=== PATIENT | male | born 1940 | race Caucasian/White ===

== ENCOUNTER 2020-10-21 04:38 | Day surgery (SDC) | payer OTHER, MEDICARE ==
[2020-10-20 14:28] VITALS: BMI 28.2
[~2020-10-21 04:38] MED LIST: BUPIVACAINE HCL/PF 0.75% 10 ML VIAL NR ONE; IOHEXOL 180 MG/1 ML ML IJ ONE; LIDOCAINE 1% P/F 10 MG/ML VIAL INF ONE
[2020-10-21] MEDS ORDERED: IOHEXOL 180 MG/1 ML ML IJ ONE (09:43)
[2020-10-21] MEDS ORDERED: BUPIVACAINE HCL/PF 0.75% 10 ML VIAL NR ONE (09:43)
[2020-10-21] MEDS ORDERED: LIDOCAINE 1% P/F 10 MG/ML VIAL INF ONE (09:43)
[2020-10-21 10:05] VITALS: BP 147/67; PULSE 57; TEMP 97.3
== END 2020-10-21 10:21 | disposition home or self-care (01) ==
LOC: JASU-SURG 04:38
PROVIDERS: ATTEND Pain Medicine Pain Medicine
PROC: BR16YZZ Fluoroscopy of Lumbar Facet Joint(s) using Other Contrast (ICD-10-PCS; 2020-10-21)
PROC: 3E0T3BZ Introduction of Anesthetic Agent into Peripheral Nerves and Plexi, Percutaneous Approach (ICD-10-PCS; principal; 2020-10-21 10:00)
DX: M47.816 Spondylosis without myelopathy or radiculopathy, lumbar region (principal)
CPT/HCPCS: 76000-TC-FY

== ENCOUNTER → 2020-11-11 | Day surgery (SDC) | payer OTHER, MEDICARE ==
[2020-11-10 10:30] VITALS: BMI 28.2
[~2020-11-11] MED LIST changes: +BUPIVACAINE HCL/PF 0.5% (5MG/ML) 10 ML VIAL ONE; +BUPIVACAINE HCL/PF 0.75% 10 ML VIAL ONE; -LIDOCAINE 1% P/F 10 MG/ML VIAL INF ONE; +LIDOCAINE HCL 1% PRESERVATIVE FREE - 30ML VIAL IJ ONE
[2020-11-11 11:16] VITALS: BP 132/70; PULSE 56; TEMP 97.2
== END | disposition home or self-care (01) ==
LOC: JASU-SURG 04:25
PROVIDERS: ATTEND Pain Medicine Pain Medicine
PROC: BR16YZZ Fluoroscopy of Lumbar Facet Joint(s) using Other Contrast (ICD-10-PCS; 2020-11-11)
PROC: 3E0T3BZ Introduction of Anesthetic Agent into Peripheral Nerves and Plexi, Percutaneous Approach (ICD-10-PCS; principal; 2020-11-11 09:30)
DX: M47.816 Spondylosis without myelopathy or radiculopathy, lumbar region (principal)
CPT/HCPCS: 76000-TC-FY

== ENCOUNTER 2020-12-02 05:03 | Day surgery (SDC) | payer OTHER, MEDICARE ==
[2020-11-30 12:07] VITALS: BMI 28.2
[2020-12-02] MEDS ORDERED: LIDOCAINE HCL/PF 1% SDV 5ML VIAL ONE (07:19)
[2020-12-02] MEDS ORDERED: DEXAMETHASONE SOD PHOSPHATE 10 MG/1 ML VIAL ONE (07:19)
[2020-12-02] MEDS ORDERED: BUPIVACAINE HCL/PF 0.5% (5MG/ML) 10 ML VIAL ONE (07:19)
[2020-12-02] MEDS ORDERED: LIDOCAINE HCL/PF 2% SDV 5ML VIAL ONE (07:24)
[2020-12-02] MEDS ORDERED: LIDOCAINE HCL 1% PRESERVATIVE FREE - 30ML VIAL IJ ONE (12:30)
[2020-12-02] MEDS ORDERED: LIDOCAINE HCL/PF 2% SDV 5ML VIAL INF ONE (12:34)
[2020-12-02] MEDS ORDERED: IOHEXOL 180 MG/1 ML ML IJ ONE (12:34)
[2020-12-02] MEDS ORDERED: DEXAMETHASONE SOD PHOSPHATE 10 MG/1 ML VIAL IVPUSH ONE (12:35)
[2020-12-02] MEDS ORDERED: BUPIVACAINE HCL/PF 0.75% 10 ML VIAL NR ONE ×2 (12:36)
[2020-12-02 16:04] VITALS: BP 178/62; PULSE 62; TEMP 97.2
== END 2020-12-02 13:06 | disposition home or self-care (01) ==
LOC: JASU-SURG 05:03
PROVIDERS: ATTEND Pain Medicine Pain Medicine
PROC: BR16YZZ Fluoroscopy of Lumbar Facet Joint(s) using Other Contrast (ICD-10-PCS; principal; 2020-12-02 11:15)
PROC: 3E0T3TZ Introduction of Destructive Agent into Peripheral Nerves and Plexi, Percutaneous Approach (ICD-10-PCS; 2020-12-02 11:15)
DX: M47.816 Spondylosis without myelopathy or radiculopathy, lumbar region (principal)
CPT/HCPCS: 76000-TC-FY; J1100

== ENCOUNTER 2020-12-30 04:19 | Day surgery (SDC) | payer OTHER, MEDICARE ==
[2020-12-28 17:11] VITALS: BMI 28.2
[2020-12-30] MEDS ORDERED: LIDOCAINE HCL/PF 1% SDV 5ML VIAL ONE (07:17)
[2020-12-30] MEDS ORDERED: TRIAMCINOLONE ACET 40MG/1ML VIAL ONE (07:18)
[2020-12-30] MEDS ORDERED: BUPIVACAINE HCL/PF 0.5% (5MG/ML) 10 ML VIAL ONE (07:19)
[2020-12-30] MEDS ORDERED: IOHEXOL 180 MG/1 ML ML IT ONE (09:47)
[2020-12-30] MEDS ORDERED: LIDOCAINE 1% P/F 10 MG/ML VIAL INF ONE (09:47)
[2020-12-30] MEDS ORDERED: BUPIVACAINE HCL/PF 0.5% (5 MG/ML) 30 ML VIAL IJ ONE (09:47)
[2020-12-30] MEDS ORDERED: TRIAMCINOLONE ACETONIDE 40 MG/ML 10 ML VIAL IJ ONE (09:47)
[2020-12-30 10:54] VITALS: BP 155/51; PULSE 60; TEMP 98.4
== END 2020-12-30 10:25 | disposition home or self-care (01) ==
LOC: JASU-SURG 04:19
PROVIDERS: ATTEND Pain Medicine Pain Medicine
PROC: 3E0U3BZ Introduction of Anesthetic Agent into Joints, Percutaneous Approach (ICD-10-PCS; 2020-12-30)
PROC: 3E0U33Z Introduction of Anti-inflammatory into Joints, Percutaneous Approach (ICD-10-PCS; principal; 2020-12-30 09:15)
DX: M53.3 Sacrococcygeal disorders, not elsewhere classified (principal)

== ENCOUNTER 2021-09-19 17:10 | Emergency (ER) | payer OTHER, MEDICARE ==
[2021-09-19 17:28] VITALS: BP 146/56; PULSE 66; TEMP 98.4; BMI 28.2
[2021-09-19] MEDS ORDERED: ALBUTEROL SO4 2.5/IPRATROPIUM 0.5 INH SOL 3 ML VIAL.NEB. NEB ONE ×2 (19:30→20:56)
[2021-09-19 21:50] LABS: INFLU A MOLECULAR Negative (Negative); INFLU B MOLECULAR Negative (Negative)
== END 2021-09-19 21:00 | disposition home or self-care (01) ==
LOC: JER 17:10
PROC: 3E0F7GC Introduction of Other Therapeutic Substance into Respiratory Tract, Via Natural or Artificial Opening (ICD-10-PCS; principal; 2021-09-19)
DX: U07.1 COVID-19 (principal)
CPT/HCPCS: 71046-TC-FY; 87502; 87807; 94640; 99284-25; C9803-CS; U0003; U0005

== ENCOUNTER 2022-01-16 04:26 | Day surgery (SDC) | payer OTHER, MEDICARE ==
[2022-01-11 12:01] VITALS: BMI 28.2
[2022-01-16] MEDS ORDERED: LIDOCAINE HCL/PF 1% SDV 5ML VIAL ONE (07:15)
[2022-01-16] MEDS ORDERED: BUPIVACAINE HCL/PF 0.5% (5MG/ML) 10 ML VIAL ONE (07:15)
[2022-01-16] MEDS ORDERED: BUPIVACAINE HCL/PF 0.5% (5 MG/ML) 30 ML VIAL IJ ONE (12:32)
[2022-01-16 15:25] VITALS: BP 135/74; PULSE 75; RESP 20; TEMP 97.2
== END 2022-01-16 13:11 | disposition home or self-care (01) ==
LOC: JASU-SURG 04:26
PROVIDERS: ATTEND Pain Medicine Pain Medicine
PROC: BR14YZZ Fluoroscopy of Cervical Facet Joint(s) using Other Contrast (ICD-10-PCS; 2022-01-16)
PROC: 3E0T3BZ Introduction of Anesthetic Agent into Peripheral Nerves and Plexi, Percutaneous Approach (ICD-10-PCS; principal; 2022-01-16 12:00)
DX: M47.812 Spondylosis without myelopathy or radiculopathy, cervical region (principal)
CPT/HCPCS: 76000-TC-FY

== ENCOUNTER → 2022-02-09 | Day surgery (SDC) | payer OTHER, MEDICARE ==
[2022-02-08 09:51] VITALS: BMI 28.2
[~2022-02-09] MED LIST changes: +BUPIVACAINE HCL/PF 0.5% (5MG/ML) 10 ML VIAL NR ONE; -BUPIVACAINE HCL/PF 0.75% 10 ML VIAL NR ONE; -BUPIVACAINE HCL/PF 0.75% 10 ML VIAL ONE; +LIDOCAINE 1% P/F 10 MG/ML VIAL INF ONE; -LIDOCAINE HCL 1% PRESERVATIVE FREE - 30ML VIAL IJ ONE; +LIDOCAINE HCL/PF 1% SDV 5ML VIAL ONE
== END | disposition home or self-care (01) ==
LOC: JASU-SURG 05:11
PROVIDERS: ATTEND Pain Medicine Pain Medicine
DX: Z53.9 Procedure and treatment not carried out, unspecified reason (principal)

== ENCOUNTER 2022-04-03 04:27 | Day surgery (SDC) | payer OTHER, MEDICARE ==
[2022-03-30 12:39] VITALS: BMI 27.4
[2022-04-03 11:09] VITALS: RESP 16
[2022-04-03] MEDS ORDERED: LIDOCAINE HCL 1% PRESERVATIVE FREE - 30ML VIAL IJ ONE (11:15)
[2022-04-03] MEDS ORDERED: BUPIVACAINE HCL/PF 0.5% (5MG/ML) 10 ML VIAL IJ ONE ×2 (11:16→11:21)
[2022-04-03 12:03] VITALS: BP 147/77; PULSE 69; TEMP 97.5
== END 2022-04-03 12:40 | disposition home or self-care (01) ==
LOC: JASU-SURG 04:27
PROVIDERS: ATTEND Pain Medicine Pain Medicine
PROC: BR14YZZ Fluoroscopy of Cervical Facet Joint(s) using Other Contrast (ICD-10-PCS; 2022-04-03)
PROC: 3E0T3BZ Introduction of Anesthetic Agent into Peripheral Nerves and Plexi, Percutaneous Approach (ICD-10-PCS; principal; 2022-04-03 11:21)
DX: M47.812 Spondylosis without myelopathy or radiculopathy, cervical region (principal); E11.9 Type 2 diabetes mellitus without complications; Z79.84 Long term (current) use of oral hypoglycemic drugs
CPT/HCPCS: 76000-TC-FY

== ENCOUNTER 2022-12-18 12:17 | Inpatient (IN) | payer OTHER, MEDICARE ==
[2022-12-18] MEDS ORDERED: CLINDAMYCIN 600MG PREMIX IVPB 600 MG/50 ML BAG IVPB ONE ×2 (13:34→13:44)
[2022-12-18 13:52] LABS: BASO % 0.5 % (0-2.0); EOS % 2.1 % (0-4.5); HEMATOCRIT 39.1 % (35.4-49); HEMOGLOBIN 13.3 GM/dL (11.7-16.9); LYMPH % 11.1 % (8-40); MCH 27.7 pg (25.7-33.7); MEAN CELL VOLUME 81.4 fl (80-96); MEAN PLT VOLUME 8.9 fl (7.5-11.1); MONO % 7.6 % (3.8-10.2); NEUT % 78.7 % (42.8-82.8); PLATELET COUNT 75 10^3/uL (134-434); RDW 17.4 % (11.9-15.9); WHITE BLOOD COUNT 5.5 K/mm3 (4.0-10.0)
[2022-12-18 13:59] LABS: INR 1.16 (0.83-1.09); PROTHROMBIN TIME (PATIENT) 13.4 SEC (9.7-13.0)
[2022-12-18 14:13] LABS: POTASSIUM 5.2 mmol/L (3.5-5.1)
[2022-12-18 14:15] LABS: CALCIUM 8.1 mg/dL (8.5-10.1)
[2022-12-18 14:16] LABS: ALBUMIN 3.5 g/dl (3.4-5.0)
[2022-12-18 14:19] LABS: CREATININE 1.6 mg/dL (0.55-1.3)
[2022-12-18 14:20] LABS: BILIRUBIN,TOTAL 0.6 mg/dL (0.2-1); TOT PROT 6.7 g/dl (6.4-8.2)
[2022-12-18 14:24] LABS: N-TERMINAL BNP 126.8 pg/ml (5-450)
[2022-12-18 14:29] LABS: BLOOD UREA NITROGEN 36.9 mg/dL (7-18)
[2022-12-18] MEDS ORDERED: SODIUM CHLORIDE 0.9% 500 ML INFUS.BAG IV ONE (14:41)
[2022-12-18] MEDS ORDERED: LIDOCAINE 5% TOPICAL PATCH TP ONE (18:19)
[2022-12-18] MEDS ORDERED: LACTULOSE 20 GM/30 ML UDC (FOR ORAL USE ONLY) PO PRN (18:21)
[2022-12-18 20:29] VITALS: BMI 27.2
[2022-12-18] MEDS: CEFAZOLIN SODIUM 2 GM in DEXTROSE 5%-WATER 100 ML IVPB SCH (21:48)
[2022-12-18] MEDS: INSULIN SLIDING SCALE (NOVOLOG) 1 VIAL SQ SCH (21:49)
[2022-12-18] MEDS: HEPARIN NA (PORCINE) 5,000 UNITS/ML 1ML VIAL SQ SCH (21:49)
[2022-12-18] MEDS ORDERED: LIDOCAINE PATCH REMOVAL MC SCH (22:00)
[2022-12-19] MEDS: ACETAMINOPHEN 1000 MG/100 ML BAG IVPB PRN ×2 (01:43→12:06)
[2022-12-19] MEDS: CEFAZOLIN SODIUM 2 GM in DEXTROSE 5%-WATER 100 ML IVPB SCH ×2 (04:00→11:17)
[2022-12-19] MEDS: INSULIN SLIDING SCALE (NOVOLOG) 1 VIAL SQ SCH ×3 (06:03→17:17)
[2022-12-19 06:40] VITALS: RESP 18
[2022-12-19] MEDS: HEPARIN NA (PORCINE) 5,000 UNITS/ML 1ML VIAL SQ SCH (11:13)
[2022-12-19 11:16] LABS: BASO % 0.5 % (0-2.0); EOS % 2.5 % (0-4.5); HEMATOCRIT 39.4 % (35.4-49); HEMOGLOBIN 13.2 GM/dL (11.7-16.9); LYMPH % 12.4 % (8-40); MCH 27.2 pg (25.7-33.7); MCHC 33.4 g/dl (32.0-35.9); MEAN CELL VOLUME 81.5 fl (80-96); MEAN PLT VOLUME 9.1 fl (7.5-11.1); MONO % 8.2 % (3.8-10.2); NEUT % 76.4 % (42.8-82.8); PLATELET COUNT 80 10^3/uL (134-434); RBC 4.83 M/mm3 (4.00-5.60); WHITE BLOOD COUNT 4.2 K/mm3 (4.0-10.0)
[2022-12-19 11:43] LABS: POTASSIUM 4.5 mmol/L (3.5-5.1)
[2022-12-19 11:59] LABS: ERYTHROCYTE SEDIMENTATION RATE 20 mm/hr (0-20)
[2022-12-19 12:06] LABS: BLOOD UREA NITROGEN 27.3 mg/dL (7-18)
[2022-12-19 12:07] LABS: ALBUMIN 3.3 g/dl (3.4-5.0); CALCIUM 8.3 mg/dL (8.5-10.1); MAGNESIUM 2.4 mg/dL (1.8-2.4)
[2022-12-19 12:09] LABS: PHOSPHOROUS 3.2 mg/dL (2.5-4.9)
[2022-12-19 12:10] LABS: CREATININE 1.3 mg/dL (0.55-1.3)
[2022-12-19 12:11] LABS: BILIRUBIN,TOTAL 0.7 mg/dL (0.2-1); TOT PROT 6.3 g/dl (6.4-8.2)
[2022-12-19 14:22] VITALS: BP 138/53; PULSE 64; TEMP 98.4
== END 2022-12-19 16:36 | disposition home or self-care (01) | DRG 603 ==
LOC: JER 12:17 → JERBED 15:32 → J5S 20:27
PROVIDERS: ADMIT Internal Medicine
DX: L03.115 Cellulitis of right lower limb (principal); M54.9 Dorsalgia, unspecified; D69.6 Thrombocytopenia, unspecified; E78.5 Hyperlipidemia, unspecified; I25.10 Atherosclerotic heart disease of native coronary artery without angina pectoris; N40.0 Benign prostatic hyperplasia without lower urinary tract symptoms; E11.9 Type 2 diabetes mellitus without complications; K59.00 Constipation, unspecified; F41.0 Panic disorder [episodic paroxysmal anxiety]; G89.29 Other chronic pain; M71.22 Synovial cyst of popliteal space [Baker], left knee; Z95.0 Presence of cardiac pacemaker
CPT/HCPCS: 36415; 80053; 82962; 83036; 83735; 83880; 84100; 84484; 85025; 85610; 85651; 85730; 93005; 93010; 93970-TC; 97116-GP; 97161-GP; 99285-25

== ENCOUNTER 2023-01-01 10:30 | Day surgery (SDC) | payer OTHER, MEDICARE ==
[2022-12-28 16:29] VITALS: BMI 28.2
[2023-01-01] MEDS ORDERED: BUPIVACAINE HCL/PF 0.75% 10 ML VIAL NR ONE ×2 (12:35→12:48)
[2023-01-01] MEDS ORDERED: LIDOCAINE HCL 1%, 10 MG/ML (20ML VIAL) INF ONE ×2 (12:36→12:48)
[2023-01-01] MEDS ORDERED: DEXAMETHASONE SOD PHOSPHATE 10 MG/1 ML VIAL IM ONE (12:37)
[2023-01-01] MEDS ORDERED: LIDOCAINE HCL 2% (50ML VIAL) INF ONE (12:37)
[2023-01-01 13:14] VITALS: RESP 18
[2023-01-01 13:46] VITALS: BP 140/82; PULSE 68; TEMP 97.6
[2023-01-01] MEDS ORDERED: ACETAMINOPHEN 500 MG TABLET (FP) PO PRN (15:59)
== END 2023-01-01 13:51 | disposition home or self-care (01) ==
LOC: JASU-SURG 10:30
PROVIDERS: ATTEND Pain Medicine Pain Medicine
PROC: 3E0T33Z Introduction of Anti-inflammatory into Peripheral Nerves and Plexi, Percutaneous Approach (ICD-10-PCS; 2023-01-01)
PROC: 3E0T3BZ Introduction of Anesthetic Agent into Peripheral Nerves and Plexi, Percutaneous Approach (ICD-10-PCS; principal; 2023-01-01 12:30)
DX: M47.816 Spondylosis without myelopathy or radiculopathy, lumbar region (principal)
CPT/HCPCS: 76000-TC-FY; J1100

== ENCOUNTER 2023-01-23 07:36 | Emergency (ER) | payer OTHER, MEDICARE ==
[2023-01-23 07:43] VITALS: BP 152/85; PULSE 80; RESP 18; TEMP 98.1; BMI 29.0
[2023-01-23 08:41] LABS: BASO % 0.4 % (0-2.0); HEMOGLOBIN 13.3 GM/dL (11.7-16.9); LYMPH % 10.3 % (8-40); MCH 26.7 pg (25.7-33.7); MCHC 33.3 g/dl (32.0-35.9); MEAN CELL VOLUME 80.3 fl (80-96); MEAN PLT VOLUME 8.8 fl (7.5-11.1); MONO % 8.2 % (3.8-10.2); NEUT % 80.1 % (42.8-82.8); PLATELET COUNT 112 10^3/uL (134-434); RBC 4.98 M/mm3 (4.00-5.60); RDW 16.6 % (11.9-15.9); WHITE BLOOD COUNT 6.4 K/mm3 (4.0-10.0)
[2023-01-23 09:01] LABS: POTASSIUM 4.9 mmol/L (3.5-5.1)
[2023-01-23 09:02] LABS: CALCIUM 8.8 mg/dL (8.5-10.1)
[2023-01-23 09:03] LABS: ALBUMIN 3.5 g/dl (3.4-5.0); BLOOD UREA NITROGEN 27.8 mg/dL (7-18)
[2023-01-23 09:06] LABS: CREATININE 1.6 mg/dL (0.55-1.3)
[2023-01-23 09:07] LABS: BILIRUBIN,TOTAL 0.9 mg/dL (0.2-1); TOT PROT 6.8 g/dl (6.4-8.2)
[2023-01-23 09:11] LABS: N-TERMINAL BNP 123.6 pg/ml (5-450)
[2023-01-23] MEDS ORDERED: ACETAMINOPHEN 325 MG TABLET (FP) PO ONE (12:10)
[2023-01-23] MEDS ORDERED: ACETAMINOPHEN 325 MG TABLET (FP) ONE (12:14)
== END 2023-01-23 12:17 | disposition home or self-care (01) ==
LOC: JER 07:36
DX: R06.02 Shortness of breath (principal); R05.9 Cough, unspecified; R09.81 Nasal congestion; B34.9 Viral infection, unspecified; Z20.822 Contact with and (suspected) exposure to COVID-19
CPT/HCPCS: 0241U-QW; 36415; 71046-TC-FY; 80053; 83880; 84484; 85025; 93005; 93010; 99285-25

== ENCOUNTER 2023-02-05 11:57 | Emergency (ER) | payer OTHER, MEDICARE ==
[2023-02-05 12:01] VITALS: BP 162/66; PULSE 72; RESP 16; TEMP 98.2; BMI 28.2
[2023-02-05 14:39] LABS: BASO % 0.3 % (0-2.0); EOS % 0.6 % (0-4.5); HEMATOCRIT 36.3 % (35.4-49); MCH 26.9 pg (25.7-33.7); MCHC 33.2 g/dl (32.0-35.9); MEAN CELL VOLUME 80.9 fl (80-96); MEAN PLT VOLUME 8.5 fl (7.5-11.1); MONO % 8.6 % (3.8-10.2); NEUT % 82.5 % (42.8-82.8); PLATELET COUNT 101 10^3/uL (134-434); RBC 4.49 M/mm3 (4.00-5.60); RDW 16.7 % (11.9-15.9); WHITE BLOOD COUNT 6.7 K/mm3 (4.0-10.0)
[2023-02-05 14:40] LABS: URINE APPEARANCE CLEAR; URINE BILIRUBIN NEGATIVE (NEGATIVE); URINE COLOR YELLOW; URINE GLUCOSE (UA) 3+ (NEGATIVE); URINE KETONE NEGATIVE (NEGATIVE); URINE LEUK ESTERASE NEGATIVE (NEGATIVE); URINE NITRITE NEGATIVE (NEGATIVE); URINE PROTEIN TRACE (NEGATIVE); URINE UROBILINOGEN 0.2 mg/dL (0.2-1.0)
[2023-02-05 14:45] LABS: INR 1.17 (0.83-1.09); PROTHROMBIN TIME (PATIENT) 13.5 SEC (9.7-13.0)
[2023-02-05 14:48] LABS: ACTIVATED PTT 27.7 SECONDS (25.2-36.5)
[2023-02-05 15:04] LABS: POTASSIUM 5.9 mmol/L (3.5-5.1)
[2023-02-05 15:07] LABS: BLOOD UREA NITROGEN 29.1 mg/dL (7-18); CALCIUM 8.2 mg/dL (8.5-10.1)
[2023-02-05 15:09] LABS: CREATININE 1.4 mg/dL (0.55-1.3)
[2023-02-05 15:11] LABS: BILIRUBIN,TOTAL 0.5 mg/dL (0.2-1); TOT PROT 6.4 g/dl (6.4-8.2)
[2023-02-05] MEDS ORDERED: SODIUM POLYSTYRENE SULFONATE 15 GM/60 ML BOTTLE PO ONE (16:14)
[2023-02-05] MEDS ORDERED: SODIUM POLYSTYRENE SULFONATE 15 GM/60 ML BOTTLE ONE (16:43)
== END 2023-02-05 16:49 | disposition home or self-care (01) ==
LOC: JER 11:57
DX: R10.11 Right upper quadrant pain (principal); R05.9 Cough, unspecified; S39.011A Strain of muscle, fascia and tendon of abdomen, initial encounter; E87.5 Hyperkalemia; J06.9 Acute upper respiratory infection, unspecified; X58.XXXA Exposure to other specified factors, initial encounter
CPT/HCPCS: 36415; 76705-TC; 80053; 81003; 83690; 85025; 85610; 85730; 87086; 99284-25

== ENCOUNTER 2023-04-30 04:18 | Day surgery (SDC) | payer OTHER, MEDICARE ==
[2023-04-29 11:56] VITALS: BMI 28.2
[2023-04-30] MEDS ORDERED: LIDOCAINE HCL/PF 1% SDV 5ML VIAL ONE (07:19)
[2023-04-30] MEDS ORDERED: BUPIVACAINE HCL/PF 0.5% (5MG/ML) 10 ML VIAL ONE (07:19)
[2023-04-30 09:55] VITALS: RESP 20
[2023-04-30] MEDS ORDERED: BUPIVACAINE HCL/PF 0.5% (5MG/ML) 10 ML VIAL IJ ONE (10:59)
[2023-04-30 13:54] VITALS: BP 138/64; PULSE 65; TEMP 97.9
[2023-04-30] MEDS ORDERED: ACETAMINOPHEN 500 MG TABLET (FP) PO PRN (22:26)
== END 2023-04-30 11:40 | disposition home or self-care (01) ==
LOC: JASU-SURG 04:18
PROVIDERS: ATTEND Pain Medicine Pain Medicine
PROC: 3E0T33Z Introduction of Anti-inflammatory into Peripheral Nerves and Plexi, Percutaneous Approach (ICD-10-PCS; 2023-04-30)
PROC: 3E0T3BZ Introduction of Anesthetic Agent into Peripheral Nerves and Plexi, Percutaneous Approach (ICD-10-PCS; principal; 2023-04-30 09:30)
DX: M47.812 Spondylosis without myelopathy or radiculopathy, cervical region (principal)
CPT/HCPCS: 76000-TC-FY

== ENCOUNTER 2023-09-18 22:15 | Inpatient (IN) | payer OTHER, MEDICARE ==
[2023-09-18 22:23] VITALS: BMI 28.2
[2023-09-18 23:39] LABS: BASO % 0.3 % (0-2.0); EOS % 2.9 % (0-4.5); HEMATOCRIT 42.9 % (35.4-49); HEMOGLOBIN 14.2 GM/dL (11.7-16.9); LYMPH % 10.5 % (8-40); MCH 26.8 pg (25.7-33.7); MCHC 33.2 g/dl (32.0-35.9); MEAN CELL VOLUME 80.7 fl (80-96); MEAN PLT VOLUME 8.6 fl (7.5-11.1); MONO % 12.6 % (3.8-10.2); NEUT % 73.7 % (42.8-82.8); PLATELET COUNT 78 10^3/uL (134-434); RBC 5.31 M/mm3 (4.00-5.60); RDW 18.1 % (11.9-15.9); WHITE BLOOD COUNT 6.4 K/mm3 (4.0-10.0)
[2023-09-18 23:41] LABS: POTASSIUM 4.2 mmol/L (3.5-5.1)
[2023-09-18 23:43] LABS: ALBUMIN 3.9 g/dl (3.4-5.0); CALCIUM 8.9 mg/dL (8.5-10.1); MAGNESIUM 2.6 mg/dL (1.8-2.4)
[2023-09-18 23:44] LABS: BLOOD UREA NITROGEN 19.3 mg/dL (7-18)
[2023-09-18 23:47] LABS: CREATININE 1.5 mg/dL (0.55-1.3)
[2023-09-18 23:48] LABS: BILIRUBIN,TOTAL 0.8 mg/dL (0.2-1); TOT PROT 7.4 g/dl (6.4-8.2)
[2023-09-18 23:49] LABS: INR 1.05 (0.83-1.09); PROTHROMBIN TIME (PATIENT) 11.8 SEC (9.7-13.0)
[2023-09-18 23:52] LABS: ACTIVATED PTT 25.3 SECONDS (25.2-36.5); N-TERMINAL BNP 173.9 pg/ml (5-450)
[2023-09-19] MEDS: SODIUM CHLORIDE 0.9% 500 ML INFUS.BAG IV ONE (00:07)
[2023-09-19 01:06] LABS: EPI CELLS 1 /uL (0-25.1); HYALINE CASTS 0 /uL (0-3.1); PH,URINE 5.5 (5.0-8.0); URINE APPEARANCE CLEAR; URINE BACTERIA 0 /uL (0-1359); URINE BILIRUBIN NEGATIVE (NEGATIVE); URINE COLOR YELLOW; URINE GLUCOSE (UA) 3+ (NEGATIVE); URINE KETONE NEGATIVE (NEGATIVE); URINE LEUK ESTERASE NEGATIVE (NEGATIVE); URINE NITRITE NEGATIVE (NEGATIVE); URINE PROTEIN 1+ (NEGATIVE); URINE RBC 39 /uL (0-23.9); URINE UROBILINOGEN 0.2 mg/dL (0.2-1.0); URINE WBC 2 /uL (0-25.8)
[2023-09-19] MEDS ORDERED: CEFTRIAXONE 1 GM/50 ML BAG ONE (01:11)
[2023-09-19] MEDS ORDERED: AZITHROMYCIN IVPB 500 MG/250 ML BAG IVPB ONE (01:11)
[2023-09-19] MEDS: CEFTRIAXONE 1 GM in DEXTROSE 5%-WATER - 100 ML IVPB ONE (01:17)
[2023-09-19] MEDS: AZITHROMYCIN IVPB 500 MG in DEXTROSE 5%-WATER - 250 ML IVPB ONE (01:29)
[2023-09-19] MEDS ORDERED: ACETAMINOPHEN 325 MG TABLET (FP) PO PRN (01:51)
[2023-09-19] MEDS ORDERED: ACETAMINOPHEN INJECTION 100 ML IVPB ONE (02:07)
[2023-09-19] MEDS: ACETAMINOPHEN 1000 MG/100 ML BAG IVPB ONE (02:18)
[2023-09-19] MEDS ORDERED: BUPRENORPHINE/NALOXONE 8 MG/2 MG FILM PACKET ONE (03:02)
[2023-09-19] MEDS: BUPRENORPHINE 8 MG TAB.SUBL SL ONE (03:07)
[2023-09-19 05:43] LABS: BASO % 0.4 % (0-2.0); EOS % 3.3 % (0-4.5); HEMATOCRIT 38.5 % (35.4-49); HEMOGLOBIN 12.7 GM/dL (11.7-16.9); LYMPH % 13.1 % (8-40); MCH 26.8 pg (25.7-33.7); MEAN CELL VOLUME 81.3 fl (80-96); MEAN PLT VOLUME 8.6 fl (7.5-11.1); MONO % 13.1 % (3.8-10.2); NEUT % 70.1 % (42.8-82.8); PLATELET COUNT 71 10^3/uL (134-434); RBC 4.74 M/mm3 (4.00-5.60); RDW 17.9 % (11.9-15.9); WHITE BLOOD COUNT 6.6 K/mm3 (4.0-10.0)
[2023-09-19 05:52] LABS: BLOOD UREA NITROGEN 16.2 mg/dL (7-18); CALCIUM 7.9 mg/dL (8.5-10.1); MAGNESIUM 2.1 mg/dL (1.8-2.4)
[2023-09-19 05:55] LABS: PHOSPHOROUS 3.8 mg/dL (2.5-4.9)
[2023-09-19 05:56] LABS: CREATININE 1.2 mg/dL (0.55-1.3)
[2023-09-19] MEDS: INSULIN ASPART SLIDING SCALE (NOVOLOG) 1 VIAL SQ SCH (06:39)
[2023-09-19] MEDS ORDERED: ALBUTEROL SO4 HFA INHALER IH PRN (06:50)
[2023-09-19] MEDS ORDERED: ALBUTEROL SO4 2.5/IPRATROPIUM 0.5 INH SOL 3 ML VIAL.NEB. NEB PRN (07:24)
[2023-09-19] MEDS: amLODIPine BESYLATE 2.5 MG TABLET (FP) PO SCH (09:02)
[2023-09-19] MEDS: guaiFENesin/D-METHORPHAN TAB.ER.12H PO SCH (09:02)
[2023-09-19] MEDS: TAMSULOSIN HCL 0.4 MG CAP PO SCH (09:02)
[2023-09-19] MEDS: AZITHROMYCIN IVPB 500 MG/250 ML BAG IVPB SCH (10:00)
[2023-09-19] MEDS ORDERED: INSULIN ASPART SLIDING SCALE (NOVOLOG) 1 VIAL SQ ONE (12:55)
[2023-09-19] MEDS: HEPARIN NA (PORCINE) 5,000 UNITS/ML 1ML VIAL SQ SCH (13:36)
[2023-09-19] MEDS: BUPRENORPHINE/NALOXONE 8 MG/2 MG FILM PACKET SL ONE (18:19)
[2023-09-19] MEDS ORDERED: cefTRIAXone SODIUM 1 GM VIAL ONE (22:25)
[2023-09-19] MEDS: CEFTRIAXONE 1 GM in DEXTROSE 5%-WATER - 50 ML IVPB SCH (22:37)
[2023-09-20] MEDS: ACETAMINOPHEN 500 MG TABLET (FP) PO PRN (03:33)
[2023-09-20 09:21] LABS: BASO % 0.5 % (0-2.0); EOS % 5.2 % (0-4.5); HEMATOCRIT 35.4 % (35.4-49); MCH 27.2 pg (25.7-33.7); MCHC 33.9 g/dl (32.0-35.9); MEAN CELL VOLUME 80.4 fl (80-96); MEAN PLT VOLUME 8.3 fl (7.5-11.1); MONO % 8.8 % (3.8-10.2); NEUT % 63.5 % (42.8-82.8); PLATELET COUNT 69 10^3/uL (134-434); RDW 17.1 % (11.9-15.9); WHITE BLOOD COUNT 4.9 K/mm3 (4.0-10.0)
[2023-09-20 09:37] LABS: POTASSIUM 4.3 mmol/L (3.5-5.1)
[2023-09-20 09:51] LABS: CALCIUM 7.8 mg/dL (8.5-10.1)
[2023-09-20 09:52] LABS: BLOOD UREA NITROGEN 21.7 mg/dL (7-18)
[2023-09-20 09:54] LABS: CREATININE 1.3 mg/dL (0.55-1.3)
[2023-09-20] MEDS: ASPIRIN 81 MG CHEWABLE TABLETS PO SCH (09:54)
[2023-09-20 09:55] LABS: BILIRUBIN,TOTAL 0.6 mg/dL (0.2-1); TOT PROT 5.6 g/dl (6.4-8.2)
[2023-09-20] MEDS: BUPRENORPHINE/NALOXONE 8 MG/2 MG FILM PACKET SL ONE (10:51)
[2023-09-20] MEDS ORDERED: BUPRENORPHINE/NALOXONE 8 MG/2 MG FILM PACKET SL PRN (12:49)
[2023-09-20] MEDS: PIPERACILLIN/TAZOB 3.375 GM 3.375 GM in DEXTROSE 5%-WATER - 50 ML IVPB SCH (13:19)
[2023-09-21] MEDS: DOCUSATE SODIUM 100 MG CAPSULE (FP) PO PRN (03:52)
[2023-09-21 09:34] LABS: BASO % 0.7 % (0-2.0); EOS % 5.7 % (0-4.5); HEMATOCRIT 36.6 % (35.4-49); LYMPH % 15.3 % (8-40); MCH 26.7 pg (25.7-33.7); MCHC 32.7 g/dl (32.0-35.9); MEAN CELL VOLUME 81.4 fl (80-96); MEAN PLT VOLUME 8.4 fl (7.5-11.1); MONO % 8.4 % (3.8-10.2); NEUT % 69.9 % (42.8-82.8); PLATELET COUNT 66 10^3/uL (134-434); RBC 4.49 M/mm3 (4.00-5.60); RDW 17.4 % (11.9-15.9); WHITE BLOOD COUNT 4.1 K/mm3 (4.0-10.0)
[2023-09-21 09:41] LABS: POTASSIUM 4.3 mmol/L (3.5-5.1)
[2023-09-21] MEDS: LACTULOSE 20 GM/30 ML UDC (FOR ORAL USE ONLY) PO ONE (09:50)
[2023-09-21 10:00] LABS: BLOOD UREA NITROGEN 24.3 mg/dL (7-18); CALCIUM 8.2 mg/dL (8.5-10.1); MAGNESIUM 2.2 mg/dL (1.8-2.4)
[2023-09-21 10:04] LABS: CREATININE 1.4 mg/dL (0.55-1.3)
[2023-09-21 10:05] LABS: BILIRUBIN,TOTAL 0.5 mg/dL (0.2-1); TOT PROT 5.7 g/dl (6.4-8.2)
[2023-09-21] MEDS: BUPRENORPHINE 8 MG TAB.SUBL SL PRN (17:43)
[2023-09-22 07:44] VITALS: RESP 18
[2023-09-22] MEDS ORDERED: INSULIN ASPART SLIDING SCALE (NOVOLOG) 1 VIAL SQ ONE (08:15)
[2023-09-22 08:53] LABS: BASO % 0.6 % (0-2.0); EOS % 4.2 % (0-4.5); HEMATOCRIT 39.3 % (35.4-49); HEMOGLOBIN 12.8 GM/dL (11.7-16.9); LYMPH % 12.2 % (8-40); MCH 26.6 pg (25.7-33.7); MCHC 32.7 g/dl (32.0-35.9); MEAN CELL VOLUME 81.6 fl (80-96); MEAN PLT VOLUME 8.3 fl (7.5-11.1); MONO % 7.2 % (3.8-10.2); NEUT % 75.8 % (42.8-82.8); PLATELET COUNT 88 10^3/uL (134-434); RBC 4.82 M/mm3 (4.00-5.60); RDW 17.6 % (11.9-15.9); WHITE BLOOD COUNT 6.2 K/mm3 (4.0-10.0)
[2023-09-22 09:14] LABS: POTASSIUM 4.5 mmol/L (3.5-5.1)
[2023-09-22 09:21] LABS: ALBUMIN 3.4 g/dl (3.4-5.0); BLOOD UREA NITROGEN 18.9 mg/dL (7-18); CALCIUM 8.7 mg/dL (8.5-10.1); MAGNESIUM 2.2 mg/dL (1.8-2.4)
[2023-09-22 09:22] LABS: CREATININE 1.3 mg/dL (0.55-1.3)
[2023-09-22 09:23] LABS: BILIRUBIN,TOTAL 0.6 mg/dL (0.2-1)
[2023-09-22 09:24] LABS: TOT PROT 6.6 g/dl (6.4-8.2)
[2023-09-23 10:09] LABS: BASO % 0.4 % (0-2.0); EOS % 3.9 % (0-4.5); HEMATOCRIT 36.3 % (35.4-49); HEMOGLOBIN 12.1 GM/dL (11.7-16.9); LYMPH % 11.1 % (8-40); MCH 27.1 pg (25.7-33.7); MCHC 33.2 g/dl (32.0-35.9); MEAN CELL VOLUME 81.6 fl (80-96); MEAN PLT VOLUME 8.8 fl (7.5-11.1); NEUT % 76.6 % (42.8-82.8); PLATELET COUNT 89 10^3/uL (134-434); RBC 4.45 M/mm3 (4.00-5.60); RDW 18.2 % (11.9-15.9); WHITE BLOOD COUNT 5.2 K/mm3 (4.0-10.0)
[2023-09-23 10:21] VITALS: BP 140/50; PULSE 61; TEMP 98.2
[2023-09-23 10:24] LABS: POTASSIUM 4.6 mmol/L (3.5-5.1)
[2023-09-23 10:31] LABS: BLOOD UREA NITROGEN 24.3 mg/dL (7-18); CALCIUM 8.6 mg/dL (8.5-10.1)
[2023-09-23 10:33] LABS: CREATININE 1.4 mg/dL (0.55-1.3)
[2023-09-23] MEDS ORDERED: AMOX TR/POT CLAV 875MG/125MG TABLETS (FP) PO SCH (17:30)
== END 2023-09-23 15:56 | disposition home health service (06) | DRG 194 ==
LOC: JER 22:15 → JERBED 09-19 01:54 → J6S 09-19 06:32
PROVIDERS: ADMIT Internal Medicine; ATTEND Nurse Practitioner Acute Care
DX: J18.9 Pneumonia, unspecified organism (principal); L03.115 Cellulitis of right lower limb; N40.0 Benign prostatic hyperplasia without lower urinary tract symptoms; E78.00 Pure hypercholesterolemia, unspecified; I25.10 Atherosclerotic heart disease of native coronary artery without angina pectoris; I10 Essential (primary) hypertension; G56.00 Carpal tunnel syndrome, unspecified upper limb; E11.42 Type 2 diabetes mellitus with diabetic polyneuropathy; D69.6 Thrombocytopenia, unspecified; G89.4 Chronic pain syndrome; J45.909 Unspecified asthma, uncomplicated; M75.51 Bursitis of right shoulder; I35.0 Nonrheumatic aortic (valve) stenosis; R29.6 Repeated falls; G62.89 Other specified polyneuropathies; R53.1 Weakness; Z95.0 Presence of cardiac pacemaker
CPT/HCPCS: 0241U-QW; 36415; 70450-TC; 71045-TC-FY; 72125-TC; 73030-TC-LT-FY; 80048; 80053; 81003; 82550; 82962; 83735; 83880; 84100; 84439; 84443; 84484; 85025; 85610; 85730; 86850; 86900; 86901; 87040; 87086; 93005; 93010; 97116-GP; 97162-GP; 99285-25; J0131; J1644

== ENCOUNTER 2023-11-07 15:48 | Observation (INO) | payer OTHER, MEDICARE ==
[2023-11-07 16:00] VITALS: BMI 28.2
[2023-11-07 18:11] LABS: HEMOGLOBIN 15.3 GM/dL (11.7-16.9); MCH 26.9 pg (25.7-33.7); MCHC 33.2 g/dl (32.0-35.9); MEAN CELL VOLUME 81.1 fl (80-96); MEAN PLT VOLUME 9.3 fl (7.5-11.1); PLATELET COUNT 109 10^3/uL (134-434); RBC 5.68 M/mm3 (4.00-5.60); RDW 17.4 % (11.9-15.9); WHITE BLOOD COUNT 10.1 K/mm3 (4.0-10.0)
[2023-11-07 18:37] LABS: ALBUMIN 4.2 g/dl (3.4-5.0); BLOOD UREA NITROGEN 55.8 mg/dL (7-18); CALCIUM 9.7 mg/dL (8.5-10.1)
[2023-11-07 18:40] LABS: CREATININE 1.7 mg/dL (0.55-1.3)
[2023-11-07 18:42] LABS: BILIRUBIN,TOTAL 0.4 mg/dL (0.2-1); TOT PROT 7.6 g/dl (6.4-8.2)
[2023-11-07 20:10] LABS: ANISOCYTOSIS 1+; MACROCYTOSIS 0
[2023-11-07 23:25] LABS: POTASSIUM 5.5 mmol/L (3.5-5.1)
[2023-11-07 23:26] LABS: CALCIUM 9.2 mg/dL (8.5-10.1)
[2023-11-07 23:27] LABS: BLOOD UREA NITROGEN 51.6 mg/dL (7-18)
[2023-11-07 23:30] LABS: CREATININE 1.5 mg/dL (0.55-1.3)
[2023-11-07 23:35] LABS: N-TERMINAL BNP 257.2 pg/ml (5-450)
[2023-11-08] MEDS ORDERED: DEXTROSE 50%-WATER 25 GM/50 ML DISP.SYRIN ONE (00:20)
[2023-11-08] MEDS ORDERED: CALCIUM GLUC IN NACL, ISO-OSM 1 GM/50 ML BAG IVPB ONE (00:20)
[2023-11-08] MEDS ORDERED: SODIUM ZIRCONIUM CYCLOSILICATE (LOKELMA) 10 GM PACKET ONE (00:21)
[2023-11-08] MEDS ORDERED: FUROSEMIDE 40 MG/4 ML INJECTABLE VIAL ONE (00:21)
[2023-11-08] MEDS ORDERED: INSULIN REGULAR HUMAN 100 UNITS/ML *VIAL ONE ×3 (00:22→12:22)
[2023-11-08] MEDS: FUROSEMIDE 40 MG/4 ML INJECTABLE VIAL IVPUSH ONE (01:10)
[2023-11-08] MEDS: DEXTROSE 50%-WATER - 25 GM/50 ML VIAL IVPUSH ONE (01:10)
[2023-11-08] MEDS: CALCIUM GLUCONATE 10% - 1,000 MG/10 ML VIAL IVPUSH ONE (01:10)
[2023-11-08] MEDS: SODIUM ZIRCONIUM CYCLOSILICATE (LOKELMA) 5 GM PACKET PO ONE (01:10)
[2023-11-08] MEDS: INSULIN REGULAR HUMAN 100 UNITS/ML *VIAL IVPUSH ONE (01:11)
[2023-11-08] MEDS: ACETAMINOPHEN 1000 MG/100 ML BAG IVPB ONE (02:35)
[2023-11-08] MEDS ORDERED: MORPHINE SULFATE 2 MG/ML SYRINGE ONE (04:45)
[2023-11-08] MEDS: morphine CARPU-JECT 8 MG/1 ML DISP.SYRIN IVPUSH ONE (04:55)
[2023-11-08] MEDS: MELATONIN 5 MG TABLETS PO ONE (04:55)
[2023-11-08] MEDS: MORPHINE SULFATE 2 MG/ML SYRINGE IVPUSH ONE (05:15)
[2023-11-08 06:51] VITALS: BP 140/79; PULSE 78; RESP 11; TEMP 98
[2023-11-08] MEDS: INSULIN ASPART SLIDING SCALE (NOVOLOG) 1 VIAL SQ SCH (08:13)
[2023-11-08] MEDS ORDERED: CARBIDOPA/LEVODOPA 25/100 TABLET (FP) ONE (08:14)
[2023-11-08] MEDS: INSULIN (LEVEMIR) 100 UNITS/ML UNITS SQ SCH (08:17)
[2023-11-08] MEDS ORDERED: INSULIN (LEVEMIR) 100 UNITS/ML UNITS SQ ONE ×2 (08:39)
[2023-11-08] MEDS: ASPIRIN 81 MG CHEWABLE TABLETS PO SCH (08:42)
[2023-11-08] MEDS: amLODIPine BESYLATE 2.5 MG TABLET (FP) PO SCH (08:42)
[2023-11-08] MEDS ORDERED: ASPIRIN 81 MG CHEWABLE TABLETS ONE (08:50)
[2023-11-08] MEDS ORDERED: amLODIPine BESYLATE 2.5 MG TABLET (FP) ONE (08:50)
[2023-11-08 08:51] LABS: HEMATOCRIT 49.9 % (35.4-49); HEMOGLOBIN 16.5 GM/dL (11.7-16.9); MCH 26.9 pg (25.7-33.7); MEAN CELL VOLUME 81.7 fl (80-96); MEAN PLT VOLUME 8.9 fl (7.5-11.1); PLATELET COUNT 139 10^3/uL (134-434); RBC 6.11 M/mm3 (4.00-5.60); RDW 16.9 % (11.9-15.9)
[2023-11-08 09:08] LABS: POTASSIUM 5.1 mmol/L (3.5-5.1)
[2023-11-08 09:09] LABS: CALCIUM 9.9 mg/dL (8.5-10.1)
[2023-11-08 09:10] LABS: ALBUMIN 4.2 g/dl (3.4-5.0); BLOOD UREA NITROGEN 54.2 mg/dL (7-18); MAGNESIUM 2.6 mg/dL (1.8-2.4)
[2023-11-08 09:13] LABS: CREATININE 1.8 mg/dL (0.55-1.3); PHOSPHOROUS 5.7 mg/dL (2.5-4.9)
[2023-11-08 09:14] LABS: BILIRUBIN,TOTAL 0.6 mg/dL (0.2-1); TOT PROT 7.7 g/dl (6.4-8.2)
[2023-11-08] MEDS ORDERED: INSULIN (LEVEMIR) 100 UNITS/ML UNITS SQ SCH (10:00)
== END 2023-11-08 17:00 | disposition left against medical advice (07) ==
LOC: JER 15:48 → JERBED 11-08 01:31
PROVIDERS: ADMIT Internal Medicine; ATTEND Internal Medicine
PROC: 3E033GC Introduction of Other Therapeutic Substance into Peripheral Vein, Percutaneous Approach (ICD-10-PCS; principal; 2023-11-08)
PROC: 3E013VG Introduction of Insulin into Subcutaneous Tissue, Percutaneous Approach (ICD-10-PCS; 2023-11-08)
PROC: 3E033VG Introduction of Insulin into Peripheral Vein, Percutaneous Approach (ICD-10-PCS; 2023-11-08)
PROC: 3E033NZ Introduction of Analgesics, Hypnotics, Sedatives into Peripheral Vein, Percutaneous Approach (ICD-10-PCS; 2023-11-08)
DX: N17.9 Acute kidney failure, unspecified (principal); N18.9 Chronic kidney disease, unspecified; E87.5 Hyperkalemia; I12.9 Hypertensive chronic kidney disease with stage 1 through stage 4 chronic kidney disease, or unspecified chronic kidney disease; R06.00 Dyspnea, unspecified; R06.02 Shortness of breath; E78.5 Hyperlipidemia, unspecified; K74.60 Unspecified cirrhosis of liver; Z88.1 Allergy status to other antibiotic agents; Z88.8 Allergy status to other drugs, medicaments and biological substances; R79.9 Abnormal finding of blood chemistry, unspecified
CPT/HCPCS: 0241U-QW; 36415; 71045-TC-FY; 80048; 80053; 82962; 83036; 83735; 83880; 84100; 84484; 85025; 85027; 87040; 93005; 93010; 93306-TC; 93970-TC; 96372; 96374; 96375; 99285-25; G0378; J0131

== ENCOUNTER 2023-11-12 23:27 | Inpatient (IN) | payer OTHER, MEDICARE ==
[2023-11-13 00:30] LABS: EPI CELLS 6 /uL (0-25.1); HYALINE CASTS 0 /uL (0-3.1); PH,URINE 5.5 (5.0-8.0); URINE APPEARANCE CLEAR; URINE BACTERIA 46 /uL (0-1359); URINE BILIRUBIN NEGATIVE (NEGATIVE); URINE COLOR YELLOW; URINE GLUCOSE (UA) 3+ (NEGATIVE); URINE KETONE NEGATIVE (NEGATIVE); URINE LEUK ESTERASE TRACE (NEGATIVE); URINE NITRITE NEGATIVE (NEGATIVE); URINE PROTEIN 1+ (NEGATIVE); URINE RBC 23 /uL (0-23.9); URINE UROBILINOGEN 0.2 mg/dL (0.2-1.0); URINE WBC 43 /uL (0-25.8)
[2023-11-13 01:20] LABS: INR 0.92 (0.83-1.09); PROTHROMBIN TIME (PATIENT) 10.6 SEC (9.7-13.0)
[2023-11-13 01:22] LABS: BASO % 0.2 % (0-2.0); EOS % 0.8 % (0-4.5); HEMATOCRIT 46.3 % (35.4-49); HEMOGLOBIN 15.2 GM/dL (11.7-16.9); LYMPH % 7.7 % (8-40); MCH 27.2 pg (25.7-33.7); MCHC 32.8 g/dl (32.0-35.9); MEAN CELL VOLUME 82.7 fl (80-96); MEAN PLT VOLUME 9.2 fl (7.5-11.1); MONO % 6.7 % (3.8-10.2); NEUT % 84.6 % (42.8-82.8); PLATELET COUNT 71 10^3/uL (134-434); RBC 5.59 M/mm3 (4.00-5.60); RDW 17.5 % (11.9-15.9); WHITE BLOOD COUNT 7.9 K/mm3 (4.0-10.0)
[2023-11-13 01:37] LABS: ACTIVATED PTT 16.6 SECONDS (25.2-36.5)
[2023-11-13 01:58] LABS: ALBUMIN 3.5 g/dl (3.4-5.0); BILIRUBIN,TOTAL 0.7 mg/dL (0.2-1); BLOOD UREA NITROGEN 42.8 mg/dL (7-18); CALCIUM 8.2 mg/dL (8.5-10.1); CREATININE 1.8 mg/dL (0.55-1.3); POTASSIUM 5.2 mmol/L (3.5-5.1); TOT PROT 6.7 g/dl (6.4-8.2)
[2023-11-13] MEDS ORDERED: CEFTRIAXONE 1 GM/50 ML BAG ONE (01:59)
[2023-11-13] MEDS: CEFTRIAXONE 1 GM in DEXTROSE 5%-WATER - 100 ML IVPB ONE (02:11)
[2023-11-13] MEDS ORDERED: ACETAMINOPHEN INJECTION 100 ML IVPB ONE (02:28)
[2023-11-13] MEDS: ACETAMINOPHEN 1000 MG/100 ML BAG IVPB ONE (02:33)
[2023-11-13 02:38] LABS: CALCIUM 8.3 mg/dL (8.5-10.1)
[2023-11-13 02:39] LABS: BLOOD UREA NITROGEN 42.2 mg/dL (7-18)
[2023-11-13 02:43] LABS: CREATININE 1.7 mg/dL (0.55-1.3)
[2023-11-13] MEDS ORDERED: KETOROLAC TROMETHAMINE 15 MG/ML VIAL ONE (03:56)
[2023-11-13] MEDS: KETOROLAC TROMETHAMINE 15 MG/ML VIAL IVPUSH ONE (04:07)
[2023-11-13] MEDS ORDERED: clonazePAM 0.5 MG TABLET PO PRN (05:38)
[2023-11-13] MEDS ORDERED: hydrOXYzine PAMOATE 25 MG CAPSULE (FP) PO PRN (05:38)
[2023-11-13] MEDS ORDERED: POLYETHYLENE GLYCOL (HEALTHYLAX) 3350 17 GM PACKET ONE (06:30)
[2023-11-13] MEDS ORDERED: CARBIDOPA/LEVODOPA 25/100 TABLET (FP) ONE (06:30)
[2023-11-13] MEDS: POLYETHYLENE GLYCOL (HEALTHYLAX) 3350 17 GM PACKET PO SCH (06:40)
[2023-11-13] MEDS: CARBIDOPA/LEVODOPA 25/100 TABLET (FP) PO SCH (06:40)
[2023-11-13] MEDS: PRAMIPEXOLE DIHYDROCHLORIDE 0.25 MG TABLET PO SCH (06:58)
[2023-11-13 07:05] LABS: HEMATOCRIT 42.8 % (35.4-49); HEMOGLOBIN 14.1 GM/dL (11.7-16.9); MCH 26.9 pg (25.7-33.7); MCHC 32.9 g/dl (32.0-35.9); MEAN CELL VOLUME 81.7 fl (80-96); MEAN PLT VOLUME 8.9 fl (7.5-11.1); PLATELET COUNT 66 10^3/uL (134-434); RBC 5.25 M/mm3 (4.00-5.60); RDW 17.2 % (11.9-15.9); WHITE BLOOD COUNT 7.1 K/mm3 (4.0-10.0)
[2023-11-13 07:23] LABS: POTASSIUM 4.8 mmol/L (3.5-5.1)
[2023-11-13 07:26] LABS: CALCIUM 8.1 mg/dL (8.5-10.1)
[2023-11-13 07:27] LABS: ALBUMIN 3.2 g/dl (3.4-5.0); BLOOD UREA NITROGEN 41.3 mg/dL (7-18); MAGNESIUM 2.5 mg/dL (1.8-2.4)
[2023-11-13 07:30] LABS: CREATININE 1.7 mg/dL (0.55-1.3)
[2023-11-13 07:31] LABS: BILIRUBIN,TOTAL 0.7 mg/dL (0.2-1); TOT PROT 6.1 g/dl (6.4-8.2)
[2023-11-13] MEDS ORDERED: ENOXAPARIN NA (PORCINE) 40 MG/0.4 ML DISP.SYRIN SQ SCH (10:00)
[2023-11-13] MEDS: ASPIRIN 81 MG CHEWABLE TABLETS PO SCH (10:58)
[2023-11-13] MEDS: amLODIPine BESYLATE 2.5 MG TABLET (FP) PO SCH (10:59)
[2023-11-13] MEDS: ONDANSETRON *ODT* 4 MG TABLET SL PRN (11:00)
[2023-11-13] MEDS: LACTULOSE 20 GM/30 ML UDC (FOR ORAL USE ONLY) PO PRN (11:00)
[2023-11-13] MEDS: INSULIN (LEVEMIR) 100 UNITS/ML UNITS SQ SCH (11:19)
[2023-11-13] MEDS: INSULIN ASPART SLIDING SCALE (NOVOLOG) 1 VIAL SQ SCH (11:20)
[2023-11-13 12:26] VITALS: BMI 58.1
[2023-11-13] MEDS: NEBIVOLOL 5 MG TABLET (FP) PO SCH (13:31)
[2023-11-13] MEDS: CARVEDILOL 6.25 MG TABLET (FP) PO SCH (13:35)
[2023-11-13] MEDS: traMADol HCL 50 MG TABLET PO PRN (14:51)
[2023-11-13] MEDS: MAGNESIUM CITRATE 300 ML BOTTLE PO ONE (14:52)
[2023-11-13 20:21] LABS: ANISOCYTOSIS 2+; MACROCYTOSIS 0
[2023-11-13] MEDS: ATORVASTATIN CA 10 MG TABLET (FP) PO SCH (21:21)
[2023-11-13] MEDS: SENNOSIDES/DOCUSATE COMBO (SENNA PLUS) TABLET (UD) PO SCH (21:21)
[2023-11-14 07:00] LABS: BASO % 0.1 % (0-2.0); EOS % 0.9 % (0-4.5); HEMATOCRIT 43.7 % (35.4-49); HEMOGLOBIN 15.1 GM/dL (11.7-16.9); LYMPH % 8.3 % (8-40); MCH 27.7 pg (25.7-33.7); MCHC 34.7 g/dl (32.0-35.9); MEAN PLT VOLUME 8.8 fl (7.5-11.1); MONO % 7.6 % (3.8-10.2); NEUT % 83.1 % (42.8-82.8); PLATELET COUNT 80 10^3/uL (134-434); RBC 5.46 M/mm3 (4.00-5.60); RDW 17.6 % (11.9-15.9); WHITE BLOOD COUNT 9.6 K/mm3 (4.0-10.0)
[2023-11-14 07:08] LABS: POTASSIUM 4.8 mmol/L (3.5-5.1)
[2023-11-14 07:10] LABS: BLOOD UREA NITROGEN 34.4 mg/dL (7-18); CALCIUM 8.5 mg/dL (8.5-10.1)
[2023-11-14 07:13] LABS: CREATININE 1.3 mg/dL (0.55-1.3)
[2023-11-14] MEDS: TAMSULOSIN HCL 0.4 MG CAP PO SCH (09:53)
[2023-11-14] MEDS: MAG HYDROX/AL HYDROX/SIMETH 30 ML UNIT-DOSE CUP PO ONE (09:53)
[2023-11-14 13:31] VITALS: BP 129/55; PULSE 63; RESP 20; TEMP 97.3
[2023-11-14] MEDS: ONDANSETRON 4 MG/2 ML VIAL IVPUSH PRN (14:30)
[2023-11-14] MEDS: ACETAMINOPHEN 325 MG TABLET (FP) PO PRN (16:34)
[2023-11-14] MEDS: METOCLOPRAMIDE HCL 10 MG TABLET (FP) PO ONE (17:56)
[2023-11-14] MEDS: FAMOTIDINE 10 MG TABLET PO ONE (17:56)
== END 2023-11-14 19:35 | disposition home or self-care (01) | DRG 641 ==
LOC: JER 23:27 → JERBED 11-13 04:06 → J7W 11-13 10:24 → OBSVTOIN 11-13 10:29
PROVIDERS: ADMIT Internal Medicine; ATTEND Internal Medicine
DX: E86.0 Dehydration (principal); G61.81 Chronic inflammatory demyelinating polyneuritis; K76.6 Portal hypertension; N17.9 Acute kidney failure, unspecified; F13.20 Sedative, hypnotic or anxiolytic dependence, uncomplicated; E78.00 Pure hypercholesterolemia, unspecified; G20.A1 Parkinson's disease without dyskinesia, without mention of fluctuations; I12.9 Hypertensive chronic kidney disease with stage 1 through stage 4 chronic kidney disease, or unspecified chronic kidney disease; E11.22 Type 2 diabetes mellitus with diabetic chronic kidney disease; N18.9 Chronic kidney disease, unspecified; I35.0 Nonrheumatic aortic (valve) stenosis; I25.10 Atherosclerotic heart disease of native coronary artery without angina pectoris; K59.00 Constipation, unspecified; D69.6 Thrombocytopenia, unspecified; R32 Unspecified urinary incontinence; K75.81 Nonalcoholic steatohepatitis (NASH); R11.2 Nausea with vomiting, unspecified; L81.8 Other specified disorders of pigmentation; Z95.0 Presence of cardiac pacemaker
CPT/HCPCS: 36415; 71045-TC-FY; 73560-TC-LT-FY; 73560-TC-RT-FY; 76775-TC; 80048; 80053; 81003; 82570; 82962; 83735; 84300; 84439; 84443; 84484; 85025; 85027; 85610; 85730; 86850; 86900; 86901; 87040; 87086; 87186; 93005; 93010; 97116-GP; 97161-GP; 99285-25; G0378; J0131; Q0162

== ENCOUNTER 2023-11-28 04:18 | Day surgery (SDC) | payer OTHER, MEDICARE ==
[2023-11-25 14:50] VITALS: BMI 26.6
[2023-11-28] MEDS ORDERED: ACETAMINOPHEN 500 MG TABLET (FP) PO PRN (11:44)
[2023-11-28 12:04] VITALS: BP 125/62; PULSE 69; RESP 16; TEMP 98.3
== END 2023-11-28 15:30 | disposition home or self-care (01) ==
LOC: JASU-SURG 04:18
PROVIDERS: ATTEND Pain Medicine Pain Medicine
DX: Z53.8 Procedure and treatment not carried out for other reasons (principal)
CPT/HCPCS: 82962

== ENCOUNTER 2024-03-20 01:45 | Day surgery (SDC) | payer OTHER, MEDICARE ==
[2024-03-20 02:03] VITALS: BMI 28.2
[2024-03-20] MEDS ORDERED: ACETAMINOPHEN INJECTION 100 ML ONE ×2 (02:31→16:59)
[2024-03-20] MEDS: ACETAMINOPHEN 1000 MG/100 ML BAG IVPB ONE (02:53)
[2024-03-20 03:02] LABS: HEMATOCRIT 50.5 % (35.4-49); HEMOGLOBIN 16.4 GM/dL (11.7-16.9); MCH 27.1 pg (25.7-33.7); MCHC 32.5 g/dl (32.0-35.9); MEAN CELL VOLUME 83.6 fl (80-96); MEAN PLT VOLUME 8.6 fl (7.5-11.1); PLATELET COUNT 98 10^3/uL (134-434); RBC 6.04 M/mm3 (4.00-5.60); RDW 17.7 % (11.9-15.9); WHITE BLOOD COUNT 18.3 K/mm3 (4.0-10.0)
[2024-03-20 03:09] LABS: INR 1.06 (0.83-1.09); PROTHROMBIN TIME (PATIENT) 12.2 SEC (9.7-13.0)
[2024-03-20 03:12] LABS: ACTIVATED PTT 26.8 SECONDS (25.2-36.5)
[2024-03-20 03:25] LABS: POTASSIUM 4.5 mmol/L (3.5-5.1)
[2024-03-20 03:27] LABS: CALCIUM 10.8 mg/dL (8.5-10.1)
[2024-03-20 03:28] LABS: ALBUMIN 3.7 g/dl (3.4-5.0); BLOOD UREA NITROGEN 36.4 mg/dL (7-18); MAGNESIUM 2.8 mg/dL (1.8-2.4)
[2024-03-20 03:32] LABS: BILIRUBIN,TOTAL 1.5 mg/dL (0.2-1); TOT PROT 6.7 g/dl (6.4-8.2)
[2024-03-20 03:38] LABS: LACTIC ACID 2.6 mmol/L (0.4-2.0)
[2024-03-20] MEDS: SODIUM CHLORIDE 0.9% 500 ML INFUS.BAG IV ONE (03:56)
[2024-03-20 07:10] LABS: LACTIC ACID 2.3 mmol/L (0.4-2.0)
[2024-03-20] MEDS: PIPERACILLIN/TAZOB 4.5 GM 4.5 GM in DEXTROSE 5%-WATER 100 ML IVPB ONE (08:35)
[2024-03-20] MEDS ORDERED: PIPERACILLIN/TAZOB 4.5 GM 4.5 GM/100 ML BAG IVPB ONE ×2 (08:41→08:42)
[2024-03-20] MEDS ORDERED: TRIMETHOBENZAMIDE HCL 200MG/2ML INJ IM PRN (09:04)
[2024-03-20] MEDS ORDERED: MORPHINE SULFATE 2 MG/ML SYRINGE IVPUSH PRN (09:05)
[2024-03-20] MEDS ORDERED: ACETAMINOPHEN 1000 MG/100 ML BAG IVPB PRN (09:05)
[2024-03-20] MEDS: SODIUM CHLORIDE 1,000 ML IV STA (09:13)
[2024-03-20] MEDS ORDERED: BUPIVACAINE HCL/PF 0.5% (5MG/ML) 10 ML VIAL ONE (10:37)
[2024-03-20] MEDS: FENOFIBRIC ACID 45 MG CAP PO SCH (11:09)
[2024-03-20] MEDS: PRAMIPEXOLE DIHYDROCHLORIDE 0.25 MG TABLET PO SCH (11:12)
[2024-03-20] MEDS: TAMSULOSIN HCL 0.4 MG CAP PO SCH (11:13)
[2024-03-20] MEDS: CARVEDILOL 6.25 MG TABLET (FP) PO SCH (11:13)
[2024-03-20] MEDS: ACETAMINOPHEN 1000 MG/100 ML BAG IVPB SCH (11:30)
[2024-03-20] MEDS: amLODIPine BESYLATE 2.5 MG TABLET (FP) PO SCH (12:12)
[2024-03-20 12:26] LABS: POTASSIUM 4.8 mmol/L (3.5-5.1)
[2024-03-20 12:28] LABS: BLOOD UREA NITROGEN 37.9 mg/dL (7-18)
[2024-03-20 12:31] LABS: CREATININE 1.8 mg/dL (0.55-1.3)
[2024-03-20] MEDS: INSULIN (LEVEMIR) 100 UNITS/ML UNITS SQ ONE (12:35)
[2024-03-20] MEDS ORDERED: FLU VACCINE (FLULAVAL) PF 45 MCG/0.5 ML SYRINGE 2024-2025 IM ONE (12:52)
[2024-03-20] MEDS: INSULIN ASPART SLIDING SCALE (NOVOLOG) 1 VIAL SQ SCH (12:59)
[2024-03-20] MEDS ORDERED: ETOMIDATE 20 MG/10 ML VIAL IVPUSH ONE (13:59)
[2024-03-20] MEDS ORDERED: PHENYLEPHRINE HCL 10 MG/1 ML SINGLE DOSE VIAL ONE (14:01)
[2024-03-20] MEDS ORDERED: ROCURONIUM BROMIDE 50 MG/5 ML SYRINGE ONE (14:02)
[2024-03-20] MEDS ORDERED: PIPERACILLIN/TAZOBACTAM 3.375 GM VIAL IVPB ONE (14:46)
[2024-03-20] MEDS: PIPERACILLIN/TAZOBACTAM 3.375 GM VIAL IVPB ONE (14:52)
[2024-03-20] MEDS: BUPIVACAINE HCL/PF 0.5% (5MG/ML) 10 ML VIAL IJ ONE ×2 (15:03)
[2024-03-20] MEDS ORDERED: ONDANSETRON 4 MG/2 ML VIAL ONE (15:44)
[2024-03-20] MEDS ORDERED: SUGAMMADEX SODIUM 200 MG/2 ML VIAL ONE (15:44)
[2024-03-20] MEDS ORDERED: ONDANSETRON 4 MG/2 ML VIAL IVPUSH PRN (16:54)
[2024-03-20] MEDS: LACTATED RINGERS SOLUTION 1,000 ML IV SCH (17:57)
[2024-03-20] MEDS ORDERED: PIPERACILLIN/TAZOB 3.375 GM 50 ML IVPB SCH ×2 (18:00)
[2024-03-20 18:56] VITALS: RESP 18
[2024-03-20] MEDS: LIDOCAINE 5% TOPICAL PATCH TP SCH (19:40)
[2024-03-20] MEDS: PATIENT'S OWN MEDICATION (NON-FORMULARY) (Linaclotide [Linzess] 72 MCG Capsule) PO SCH (19:51)
[2024-03-20] MEDS: PATIENT'S OWN MEDICATION (NON-FORMULARY) (Vibegron [Gemtesa] 75 MG Tablet) PO SCH (19:51)
[2024-03-20] MEDS: LIDOCAINE PATCH REMOVAL MC SCH (22:58)
[2024-03-21 10:16] LABS: BASO % 0.3 % (0-2.0); EOS % 0.5 % (0-4.5); HEMATOCRIT 37.6 % (35.4-49); HEMOGLOBIN 12.7 GM/dL (11.7-16.9); LYMPH % 7.1 % (8-40); MCH 27.8 pg (25.7-33.7); MCHC 33.7 g/dl (32.0-35.9); MEAN CELL VOLUME 82.7 fl (80-96); MEAN PLT VOLUME 8.9 fl (7.5-11.1); MONO % 6.8 % (3.8-10.2); NEUT % 85.3 % (42.8-82.8); PLATELET COUNT 75 10^3/uL (134-434); RBC 4.55 M/mm3 (4.00-5.60); RDW 17.4 % (11.9-15.9); WHITE BLOOD COUNT 7.7 K/mm3 (4.0-10.0)
[2024-03-21] MEDS ORDERED: clonazePAM 0.25 MG ODT TABLETS SL PRN (10:47)
[2024-03-21 11:44] LABS: POTASSIUM 4.1 mmol/L (3.5-5.1)
[2024-03-21 11:48] LABS: BLOOD UREA NITROGEN 30.9 mg/dL (7-18); CALCIUM 8.2 mg/dL (8.5-10.1)
[2024-03-21 11:52] LABS: CREATININE 1.5 mg/dL (0.55-1.3)
[2024-03-21] MEDS: TAMSULOSIN HCL 0.4 MG CAP PO SCH (16:20)
[2024-03-21] MEDS: INSULIN ASPART SLIDING SCALE (NOVOLOG) 1 VIAL SQ SCH (21:45)
[2024-03-22 10:35] LABS: HEMATOCRIT 39.3 % (35.4-49); HEMOGLOBIN 13.1 GM/dL (11.7-16.9); MCH 27.7 pg (25.7-33.7); MCHC 33.4 g/dl (32.0-35.9); MEAN CELL VOLUME 83.1 fl (80-96); MEAN PLT VOLUME 8.8 fl (7.5-11.1); PLATELET COUNT 75 10^3/uL (134-434); RBC 4.73 M/mm3 (4.00-5.60); RDW 17.1 % (11.9-15.9)
[2024-03-22 10:40] LABS: POTASSIUM 4.3 mmol/L (3.5-5.1)
[2024-03-22 10:47] LABS: BLOOD UREA NITROGEN 21.2 mg/dL (7-18); CALCIUM 8.3 mg/dL (8.5-10.1)
[2024-03-22 10:51] LABS: CREATININE 1.3 mg/dL (0.55-1.3)
[2024-03-22 10:52] LABS: BILIRUBIN,TOTAL 0.8 mg/dL (0.2-1); TOT PROT 5.7 g/dl (6.4-8.2)
[2024-03-22 14:21] VITALS: BP 128/53; PULSE 83; TEMP 97.9
== END 2024-03-22 15:12 | disposition home or self-care (01) ==
LOC: JER 01:45 → JERBED 08:37 → UNDOADMIN 08:37 → JERBED 10:39 → J6S 10:39 → JASUSAT 13:29 → SUATTDRO 13:29 → J6S 13:46 → JASUSAT 03-22 15:12
PROVIDERS: ATTEND Internal Medicine
PROC: 0DTJ4ZZ Resection of Appendix, Percutaneous Endoscopic Approach (ICD-10-PCS; principal; 2024-03-20 10:00)
DX: K36 Other appendicitis (principal); E78.5 Hyperlipidemia, unspecified; N40.0 Benign prostatic hyperplasia without lower urinary tract symptoms; G20.A1 Parkinson's disease without dyskinesia, without mention of fluctuations; Z95.810 Presence of automatic (implantable) cardiac defibrillator; I25.10 Atherosclerotic heart disease of native coronary artery without angina pectoris; K74.60 Unspecified cirrhosis of liver; I35.0 Nonrheumatic aortic (valve) stenosis; K52.9 Noninfective gastroenteritis and colitis, unspecified; F41.9 Anxiety disorder, unspecified; F13.20 Sedative, hypnotic or anxiolytic dependence, uncomplicated; D69.6 Thrombocytopenia, unspecified; N17.9 Acute kidney failure, unspecified; I12.9 Hypertensive chronic kidney disease with stage 1 through stage 4 chronic kidney disease, or unspecified chronic kidney disease; N18.9 Chronic kidney disease, unspecified; E11.22 Type 2 diabetes mellitus with diabetic chronic kidney disease
CPT/HCPCS: 36415; 71045-TC-FY; 74177-TC; 80048; 80053; 82962; 83605; 83690; 83735; 84484; 85025; 85027; 85610; 85730; 88307-TC; 93005; 93010; 94760; 97116-GP; 97162-GP; 99285-25; J0131

== ENCOUNTER 2024-09-25 06:27 | Day surgery (SDC) | payer OTHER, MEDICARE ==
[2024-09-24 12:07] VITALS: BMI 28.2
[2024-09-25] MEDS: BUPIVACAINE HCL/PF 0.5% (5MG/ML) 10 ML VIAL IJ ONE
[2024-09-25] MEDS: LIDOCAINE HCL/PF 2% SDV 5ML VIAL INF ONE
[2024-09-25] MEDS: DEXAMETHASONE SOD PHOSPHATE 10 MG/1 ML VIAL IM ONE
[2024-09-25] MEDS: LIDOCAINE HCL 1% PRESERVATIVE FREE - 30ML VIAL IJ ONE
[2024-09-25 09:21] VITALS: RESP 20
[2024-09-25 12:23] VITALS: BP 108/52; PULSE 60; TEMP 97.3
[2024-09-25] MEDS ORDERED: ACETAMINOPHEN 500 MG TABLET (FP) PO PRN (14:45)
== END 2024-09-25 12:50 | disposition home or self-care (01) ==
LOC: JASU-SURG 06:27
PROVIDERS: ATTEND Pain Medicine Pain Medicine
PROC: 01513ZZ Destruction of Cervical Nerve, Percutaneous Approach (ICD-10-PCS; principal; 2024-09-25 11:36)
DX: M47.812 Spondylosis without myelopathy or radiculopathy, cervical region (principal)
CPT/HCPCS: 82962; J1100

== ENCOUNTER 2024-12-07 09:00 | Observation (INO) | payer OTHER, MEDICARE ==
[2024-12-07] MEDS ORDERED: VANCOMYCIN HCL 1,500 MG in DEXTROSE 5%-WATER - 500 ML IVPB ONE (09:50)
[2024-12-07] MEDS ORDERED: ONDANSETRON 4 MG/2 ML VIAL ONE (10:21)
[2024-12-07] MEDS ORDERED: PIPERACILLIN/TAZOB 4.5 GM 4.5 GM/100 ML BAG IVPB ONE (10:22)
[2024-12-07] MEDS: PIPERACILLIN/TAZOB 4.5 GM 4.5 GM in DEXTROSE 5%-WATER 100 ML IVPB ONE (10:25)
[2024-12-07] MEDS: ONDANSETRON 4 MG/2 ML VIAL IVPUSH ONE (10:25)
[2024-12-07 10:36] LABS: BASOPHILS # 0.02 x10^3/uL (0.01-0.08); EOSINOPHIL % 1.2 % (0.8-7.0); EOSINOPHILS # 0.07 x10^3/uL (0.04-0.54)
[2024-12-07 10:38] LABS: ABSOLUTE IMMATURE GRANULOCYTES 0.11 x10^3/uL (0.0-0.031); IMMATURE PLATELET FRACTION # 3.20 x10^3/uL; MCHC 31.5 g/dl (32.3-36.5); MEAN CELL VOLUME 82.0 fl (79.0-92.2); MEAN PLT VOLUME 10.3 fl (9.4-12.4); MONOCYTE # 0.49 x10^3/uL (0.30-0.82); MONOCYTE % 8.2 % (5.3-12.2); RDW 17.1 % (12.6-16.6)
[2024-12-07 10:56] LABS: CO2 33.0 mmol/L (21-32); GLUCOSE,RANDOM 105.0 mg/dL (74-106)
[2024-12-07 10:59] LABS: CREATININE 1.8 mg/dL (0.55-1.3); SGOT/AST 16.0 U/L (15-37); SGPT/ALT 8.0 U/L (13-61)
[2024-12-07 11:01] LABS: TOT PROT 6.5 g/dl (6.4-8.2)
[2024-12-07 11:02] LABS: ALK PHOS 61.0 U/L (45-117)
[2024-12-07] MEDS ORDERED: LIDOCAINE 5% TOPICAL PATCH ONE ×2 (11:51→15:56)
[2024-12-07] MEDS: ACETAMINOPHEN 1000 MG/100 ML BAG IVPB ONE (12:00)
[2024-12-07] MEDS: VANCOMYCIN HCL IN 5 % DEXTROSE 1,500 MG/300 ML BAG IVPB ONE (12:00)
[2024-12-07] MEDS: LIDOCAINE 5% TOPICAL PATCH TP ONE ×2 (12:01→16:48)
[2024-12-07] MEDS ORDERED: MORPHINE SULFATE 2 MG/ML SYRINGE IVPUSH PRN (14:06)
[2024-12-07] MEDS ORDERED: ONDANSETRON 4 MG/2 ML VIAL IVPUSH PRN (14:06)
[2024-12-07] MEDS ORDERED: [UNRECOGNIZED DRUG - OTHER] SQ SCH (14:30)
[2024-12-07] MEDS ORDERED: EVOLOCUMAB 140 MG/ML SQ SCH (14:30)
[2024-12-07] MEDS: SODIUM CHLORIDE 1,000 ML IV SCH (16:49)
[2024-12-07] MEDS ORDERED: CARBIDOPA/LEVODOPA 25/100 TABLET (FP) ONE ×2 (17:15→17:21)
[2024-12-07] MEDS: ACETAMINOPHEN 325 MG TABLET (FP) PO PRN (20:15)
[2024-12-07 20:27] VITALS: BMI 27.6
[2024-12-07] MEDS: morphine CARPU-JECT 2 MG/1 ML DISP.SYRIN IVPUSH PRN (21:08)
[2024-12-07] MEDS: CARVEDILOL 6.25 MG TABLET (FP) PO SCH (21:10)
[2024-12-07] MEDS: TAMSULOSIN HCL 0.4 MG CAP PO SCH (21:10)
[2024-12-07] MEDS: LIDOCAINE PATCH REMOVAL MC ONE ×2 (21:10)
[2024-12-07] MEDS ORDERED: PATIENT'S OWN MEDICATION (NON-FORMULARY) (Azelastine Hcl [Azelastine Hcl] 137 MCG/0.137 ML NS SCH (22:00)
[2024-12-07] MEDS ORDERED: BUPRENORPHINE 2 MG TAB.SUBL SL SCH (22:00)
[2024-12-07] MEDS ORDERED: PATIENT'S OWN MEDICATION (NON-FORMULARY) (Vibegron [Gemtesa] 75 MG Tablet) PO SCH (22:00)
[2024-12-07] MEDS ORDERED: PATIENT'S OWN MEDICATION (NON-FORMULARY) (Pravastatin Sodium [Pravastatin Sodium] 20 MG Ta PO SCH (22:00)
[2024-12-07] MEDS: INSULIN (NOVOLOG) ASPART 100 UNITS/ML 10ML VIAL SQ SCH (22:27)
[2024-12-07] MEDS: FLUTICASONE PROP 0.05% 16 GM NASAL SPRAY NS SCH (23:06)
[2024-12-08] MEDS: INSULIN GLARGINE (LANTUS) 100 UNITS/ML UNITS SQ SCH ×2 (08:24→21:19)
[2024-12-08 08:46] LABS: EPI CELLS 26 /uL (0-25.1); HYALINE CASTS 1 /uL (0-3.1); URINE APPEARANCE TURBID; URINE BACTERIA 1 /uL (0-1359); URINE BILIRUBIN NEGATIVE (NEGATIVE); URINE COLOR RED; URINE GLUCOSE (UA) NEGATIVE (NEGATIVE); URINE KETONE NEGATIVE (NEGATIVE); URINE LEUK ESTERASE 2+ (NEGATIVE); URINE NITRITE NEGATIVE (NEGATIVE); URINE PROTEIN 2+ (NEGATIVE); URINE UROBILINOGEN 0.2 mg/dL (0.2-1.0); URINE WBC 286 /uL (0-25.8)
[2024-12-08 09:22] LABS: INR 1.14 (0.83-1.09); PROTHROMBIN TIME (PATIENT) 12.4 SEC (9.7-13.0)
[2024-12-08 09:25] LABS: BASOPHILS # 0.02 x10^3/uL (0.01-0.08)
[2024-12-08 09:27] LABS: ABSOLUTE IMMATURE GRANULOCYTES 0.16 x10^3/uL (0.0-0.031); EOSINOPHIL % 1.0 % (0.8-7.0); EOSINOPHILS # 0.04 x10^3/uL (0.04-0.54); IMMATURE PLATELET FRACTION # 2.00 x10^3/uL; MCHC 31.1 g/dl (32.3-36.5); MEAN CELL VOLUME 83.3 fl (79.0-92.2); MEAN PLT VOLUME 10.5 fl (9.4-12.4); MONOCYTE # 0.33 x10^3/uL (0.30-0.82); MONOCYTE % 8.6 % (5.3-12.2); RDW 17.1 % (12.6-16.6)
[2024-12-08] MEDS ORDERED: BUPRENORPHINE/NALOXONE 2 MG/0.5 MG FILM PACKET SL SCH (10:00)
[2024-12-08] MEDS ORDERED: predniSONE 20 MG TABLET (UD) PO SCH (10:00)
[2024-12-08] MEDS: CHOLECALCIFEROL (VIT D3) 1,000 UNIT (25 MCG) TABLET PO SCH ×2 (10:31→15:01)
[2024-12-08] MEDS: amLODIPine BESYLATE 2.5 MG TABLET (FP) PO SCH (10:31)
[2024-12-08] MEDS: PANTOPRAZOLE 20 MG TABLET PO SCH (10:31)
[2024-12-08] MEDS: FENOFIBRIC ACID 45 MG CAP PO SCH (10:31)
[2024-12-08] MEDS: CEFTRIAXONE 1 GM in DEXTROSE 5%-WATER - 50 ML IVPB SCH (10:31)
[2024-12-08 10:33] LABS: URINE RBC 20765.9 /uL (0-23.9); YEAST NONE SEEN (NEGATIVE)
[2024-12-08] MEDS: INSULIN ASPART SLIDING SCALE (NOVOLOG) 1 VIAL SQ SCH ×2 (11:06→16:57)
[2024-12-08] MEDS: FLUTICASONE/UMECLIDIN/VILANTER(200-62.5-25 TRELEGY ELLIPTA) INAHLER IH SCH (11:06)
[2024-12-08] MEDS ORDERED: MIDAZOLAM HCL 2 MG/2 ML SINGLE DOSE VIAL ONE (12:08)
[2024-12-08] MEDS ORDERED: PROPOFOL 20 ML ONE (12:09)
[2024-12-08] MEDS: ceFAZolin 2 GRAM PREMIX BAG IVPB ONE ×2 (12:30→12:33)
[2024-12-08] MEDS ORDERED: ONDANSETRON 4 MG/2 ML VIAL ONE (12:49)
[2024-12-08] MEDS ORDERED: DEXAMETHASONE SOD PHOSPHATE 4 MG/1 ML VIAL ONE (12:49)
[2024-12-08] MEDS ORDERED: SODIUM CHLORIDE 1,000 ML IV SCH (13:12)
[2024-12-08] MEDS ORDERED: ACETAMINOPHEN 325 MG TABLET (FP) PO PRN (13:12)
[2024-12-08] MEDS ORDERED: morphine CARPU-JECT 2 MG/1 ML DISP.SYRIN IVPUSH PRN (13:12)
[2024-12-08] MEDS ORDERED: ONDANSETRON 4 MG/2 ML VIAL IVPUSH PRN (13:12)
[2024-12-08] MEDS ORDERED: LACTATED RINGERS SOLUTION 1,000 ML IV SCH (13:30)
[2024-12-08] MEDS: ACETAMINOPHEN 1000 MG/100 ML BAG IVPB ONE (13:35)
[2024-12-08] MEDS: ACETAMINOPHEN INJECTION 100 ML ONE (13:35)
[2024-12-08] MEDS: SODIUM CHLORIDE 1,000 ML IV SCH (15:51)
[2024-12-08] MEDS: PRAMIPEXOLE DIHYDROCHLORIDE 0.25 MG TABLET PO SCH (15:52)
[2024-12-08] MEDS: MONTELUKAST NA 10 MG TABLET PO SCH (21:18)
[2024-12-08] MEDS: PRAMIPEXOLE DIHYDROCHLORIDE 0.5 MG TABLET PO SCH (21:18)
[2024-12-08] MEDS: CARVEDILOL 6.25 MG TABLET (FP) PO SCH (21:18)
[2024-12-08] MEDS: TAMSULOSIN HCL 0.4 MG CAP PO SCH (21:18)
[2024-12-08] MEDS: FLUTICASONE PROP 0.05% 16 GM NASAL SPRAY NS SCH (21:59)
[2024-12-08] MEDS ORDERED: PATIENT'S OWN MEDICATION (NON-FORMULARY) (Pravastatin Sodium [Pravastatin Sodium] 20 MG) PO SCH (22:00)
[2024-12-08] MEDS ORDERED: MONTELUKAST NA 10 MG TABLET PO SCH (22:00)
[2024-12-09] MEDS ORDERED: INSULIN GLARGINE (LANTUS) 100 UNITS/ML UNITS SQ SCH (08:47)
[2024-12-09 09:10] LABS: MONOCYTE # 0.32 x10^3/uL (0.30-0.82)
[2024-12-09 09:12] LABS: ABSOLUTE IMMATURE GRANULOCYTES 0.10 x10^3/uL (0.0-0.031); BASOPHILS # 0.00 x10^3/uL (0.01-0.08); EOSINOPHIL % 0.0 % (0.8-7.0); EOSINOPHILS # 0.00 x10^3/uL (0.04-0.54); IMMATURE PLATELET FRACTION # 2.70 x10^3/uL; MCHC 30.5 g/dl (32.3-36.5); MEAN CELL VOLUME 84.0 fl (79.0-92.2); MEAN PLT VOLUME 11.1 fl (9.4-12.4); MONOCYTE % 5.3 % (5.3-12.2); RDW 16.8 % (12.6-16.6)
[2024-12-09 09:43] LABS: CO2 27.0 mmol/L (21-32); GLUCOSE,RANDOM 230.0 mg/dL (74-106)
[2024-12-09 09:46] LABS: CREATININE 1.4 mg/dL (0.55-1.3)
[2024-12-09] MEDS ORDERED: CHOLECALCIFEROL (VIT D3) 1,000 UNIT (25 MCG) TABLET PO SCH (10:00)
[2024-12-09] MEDS: CEFTRIAXONE 1 GM in DEXTROSE 5%-WATER - 50 ML IVPB SCH (10:05)
[2024-12-09] MEDS: PANTOPRAZOLE 20 MG TABLET PO SCH (10:09)
[2024-12-09] MEDS: FENOFIBRIC ACID 45 MG CAP PO SCH (10:09)
[2024-12-09] MEDS: amLODIPine BESYLATE 2.5 MG TABLET (FP) PO SCH (10:10)
[2024-12-09] MEDS: FLUTICASONE/UMECLIDIN/VILANTER(200-62.5-25 TRELEGY ELLIPTA) INAHLER IH SCH (10:11)
[2024-12-09 14:29] VITALS: TEMP 97.5
[2024-12-09 17:47] VITALS: BP 122/52; PULSE 63; RESP 17
== END 2024-12-09 18:46 | disposition home or self-care (01) ==
LOC: JER 09:00 → JERBED 14:16 → J6S 18:09
PROVIDERS: ADMIT Hospitalist; ATTEND Internal Medicine
PROC: 3E03329 Introduction of Other Anti-infective into Peripheral Vein, Percutaneous Approach (ICD-10-PCS; principal; 2024-12-07)
PROC: 3E033NZ Introduction of Analgesics, Hypnotics, Sedatives into Peripheral Vein, Percutaneous Approach (ICD-10-PCS; 2024-12-07)
PROC: 3E013VG Introduction of Insulin into Subcutaneous Tissue, Percutaneous Approach (ICD-10-PCS; 2024-12-07)
PROC: 3E033GC Introduction of Other Therapeutic Substance into Peripheral Vein, Percutaneous Approach (ICD-10-PCS; 2024-12-07)
PROC: 3E0337Z Introduction of Electrolytic and Water Balance Substance into Peripheral Vein, Percutaneous Approach (ICD-10-PCS; 2024-12-07)
PROC: 0TCB8ZZ Extirpation of Matter from Bladder, Via Natural or Artificial Opening Endoscopic (ICD-10-PCS; 2024-12-08)
DX: I25.10 Atherosclerotic heart disease of native coronary artery without angina pectoris (principal); I12.9 Hypertensive chronic kidney disease with stage 1 through stage 4 chronic kidney disease, or unspecified chronic kidney disease; D64.9 Anemia, unspecified; N40.0 Benign prostatic hyperplasia without lower urinary tract symptoms; R80.9 Proteinuria, unspecified; E11.22 Type 2 diabetes mellitus with diabetic chronic kidney disease; Z95.0 Presence of cardiac pacemaker; G20.A1 Parkinson's disease without dyskinesia, without mention of fluctuations; I35.0 Nonrheumatic aortic (valve) stenosis; K76.0 Fatty (change of) liver, not elsewhere classified; D69.6 Thrombocytopenia, unspecified; Z88.8 Allergy status to other drugs, medicaments and biological substances
CPT/HCPCS: 36415; 74176-TC; 80048; 80053; 81003; 82962; 83735; 84100; 85025; 85610; 87040; 87086; 93970-TC; 94760; 96361; 96365; 96366; 96367; 96372; 96375; 97116-GP; 97161-GP; 99285-25; G0378